=== PATIENT | female | born 1995 | race Caucasian/White ===

== ENCOUNTER 2018-04-10 01:04 | Emergency (ER) | payer OTHER, MEDICAID ==
[~2018-04-10] VITALS: Ht 172.7 cm; Wt 75.0 kg
[2018-04-10] MEDS ORDERED: IBUPROFEN 200 MG TABLET PO ONE (02:00)
[2018-04-10] MEDS ORDERED: IBUPROFEN 200 MG TABLET ONE (02:08)
[2018-04-10 02:55] VITALS: BP 120/52
== END 2018-04-10 02:57 | disposition home or self-care (01) ==
LOC: ED 02:21
DX: G89.11 Acute pain due to trauma (principal); M25.561 Pain in right knee; W01.0XXA Fall on same level from slipping, tripping and stumbling without subsequent striking against object, initial encounter; Y93.89 Activity, other specified; Y92.511 Restaurant or cafe as the place of occurrence of the external cause; Y99.8 Other external cause status
CPT/HCPCS: 99284

== ENCOUNTER 2019-01-25 02:00 | Emergency (ER) | payer OTHER, MEDICAID ==
[~2019-01-25] VITALS: Ht 175.3 cm; Wt 96.3 kg
[2019-01-25] MEDS ORDERED: ACETAMINOPHEN 325 MG TABLET ONE (02:21)
[2019-01-25 02:29] LABS: BASOPHILS # (AUTO) 0.07 x10^3/uL (0-0.1); BASOPHILS % (AUTO) 1 % (0-1); EOSINOPHILS # (AUTO) 0.13 x10^3/uL (0-0.4); EOSINOPHILS % (AUTO) 1 % (1-7); LYMPHOCYTES # (AUTO) 4.03 x10^3/uL (1-3.4); LYMPHOCYTES % (AUTO) 35 % (22-44); MD NO; MEAN CORPUSCULAR HEMOGLOBIN 28.7 pg (27.0-34.8); MEAN CORPUSCULAR HGB CONC 33.1 g/dL (32.4-35.8); MEAN CORPUSCULAR VOLUME 86.7 fL (80-100); MEAN PLATELET VOLUME 9.3 fL (7.4-10.4); MONOCYTES # (AUTO) 0.61 x10^3/uL (0.2-0.8); MONOCYTES % (AUTO) 5 % (2-9); NEUTROPHILS # (AUTO) 6.64 x10^3/uL (1.8-6.8); NEUTROPHILS % (AUTO) 58 % (42-75); PLATELET COUNT 219 x10^3/uL (130-400); RED CELL DISTRIBUTION WIDTH 13.9 % (9.6-15.2)
[2019-01-25] MEDS ORDERED: ACETAMINOPHEN 325 MG TABLET PO ONE (02:30)
[2019-01-25 02:41] LABS: ALBUMIN 3.6 g/dL (3.4-5.0); ANION GAP 8 mmol/L (5-15); CALCIUM 9.1 mg/dL (8.5-10.1); CHLORIDE 109 mmol/L (98-107); CREATININE 0.66 mg/dL (0.55-1.02)
--- NOTE | 2019-01-25 03:00 | NUR ---
PT IN [place].
--- NOTE | 2019-01-25 03:15 | NUR ---
[place]. PT AMBUALTED TO BATHROOM. NO ACUTE DISTRESS NOTED. UA CUP GIVEN.
[2019-01-25 03:42] LABS: MICROSCOPIC AUTO
[2019-01-25 03:44] LABS: CULTURE INDICATED? NO
[2019-01-25 04:20] VITALS: BP 128/65
== END 2019-01-25 04:22 | disposition home or self-care (01) ==
LOC: ED 04:00
DX: O20.0 Threatened abortion (principal); Z3A.01 Less than 8 weeks gestation of pregnancy
CPT/HCPCS: 36415; 76801; 80048; 81001; 82040; 84702; 85025; 86901; 99284